=== PATIENT | female | born 1990 | race African-American/Black ===

== ENCOUNTER 2019-03-30 16:02 | Emergency (ER) | payer MEDICAID ==
[~2019-03-30] VITALS: Ht 167.6 cm; Wt 65.8 kg
[2019-03-30 16:32] VITALS: BP 120/72
== END 2019-03-30 17:25 | disposition home or self-care (01) ==
LOC: ER 16:05
DX: S16.1XXA Strain of muscle, fascia and tendon at neck level, initial encounter (principal); S39.012A Strain of muscle, fascia and tendon of lower back, initial encounter; V49.49XA Driver injured in collision with other motor vehicles in traffic accident, initial encounter; Y93.89 Activity, other specified; Y92.413 State road as the place of occurrence of the external cause; Y99.8 Other external cause status